=== PATIENT | female | born 1960 | race Caucasian/White ===

== ENCOUNTER 2016-06-02 13:51 | Outpatient (CLI) | payer MEDICAID | END 2016-06-02 13:52 | disposition home or self-care (01) | DX: Z12.31 Encounter for screening mammogram for malignant neoplasm of breast (principal) ==

== ENCOUNTER 2016-07-28 16:29 | Emergency (ER) | payer MEDICAID ==
[2016-07-28] MEDS ORDERED: LIDOCAINE 1%-EPI 1:100000 20 ML MDV ONE (16:59)
== END 2016-07-28 17:13 | disposition home or self-care (01) ==
DX: N76.4 Abscess of vulva (principal); N76.2 Acute vulvitis; I10 Essential (primary) hypertension; E11.9 Type 2 diabetes mellitus without complications; Z79.84 Long term (current) use of oral hypoglycemic drugs

== ENCOUNTER 2016-08-24 12:04 | Emergency (ER) | payer MEDICAID ==
[2016-08-24] MEDS ORDERED: BENZONATATE 100 MG CAPSULE PO STA (14:58)
[2016-08-24] MEDS ORDERED: guaiFENesin/DEXTROMETHORPHAN 10 ML UDC PO STA (14:59)
[2016-08-24] MEDS ORDERED: guaiFENesin/CODEINE 5 ML UDC ONE (15:08)
[2016-08-24] MEDS ORDERED: BENZONATATE 100 MG CAPSULE PO ONE (15:09)
[2016-08-24] MEDS ORDERED: guaiFENesin/DEXTROMETHORPHAN 10 ML UDC ONE (15:12)
== END 2016-08-24 15:23 | disposition home or self-care (01) ==
DX: J40 Bronchitis, not specified as acute or chronic (principal); I10 Essential (primary) hypertension
CPT/HCPCS: 36415; 71020; 80048; 84484; 85025; 99283; 99284; A9270

== ENCOUNTER 2019-07-31 15:55 | Outpatient (CLI) | payer MEDICAID | END 2019-07-31 15:56 | disposition home or self-care (01) | LOC: COV 15:55 | PROVIDERS: ATTEND Family Medicine | DX: R05 Cough (principal); R50.9 Fever, unspecified | CPT/HCPCS: 81599 ==

== ENCOUNTER 2019-08-19 10:24 | Emergency (ER) | payer MEDICAID ==
[2019-08-19] MEDS ORDERED: KETOROLAC 30 MG/ML VIAL IVP STA (11:32)
[2019-08-19] MEDS ORDERED: ACETAMINOPHEN 325 MG TABLET PO STA (11:32)
[2019-08-19] MEDS ORDERED: methocarbamoL 500 MG TABLET PO STA (11:33)
[2019-08-19 12:49] LABS: BASOPHILS % (AUTO) 0.5 %; EOSINOPHILS # (AUTO) 0.2 10^3/uL (0.0-0.7); EOSINOPHILS % (AUTO) 1.9 %; HGB - HEMOGLOBIN 13.5 g/dL (12.0-16.0); LYMPHOCYTES # (AUTO) 2.2 10^3/uL (1.5-3.5); LYMPHOCYTES % (AUTO) 25.6 %; MEAN CORPUSCULAR HEMOGLOBIN 27.4 pg (27.0-31.0); MEAN CORPUSCULAR HGB CONC 32.3 g/dL (32.0-36.0); MEAN CORPUSCULAR VOLUME 84.8 fL (81.0-99.0); MEAN PLATELET VOLUME 11.5 fL (7.9-10.8); MONOCYTES # (AUTO) 0.5 10^3/uL (0.0-1.0); NEUTROPHILS # (AUTO) 5.6 10^3/uL (1.5-6.6); NEUTROPHILS % (AUTO) 65.6 %; PLT - PLATELET COUNT 299 10^3/uL (130-450); RED BLOOD COUNT 4.93 10^6/uL (4.20-5.40); RED CELL DISTRIBUTION WIDTH 13.8 % (12.0-15.0); WHITE BLOOD COUNT 8.5 x10^3/uL (4.8-10.8)
--- NOTE | 2019-08-19 12:51 | XRAY Report ---
Reason: chest/back pain; COIVD + 3 weeks ago Procedure Date: 08/19/2019 Accession Number: [id number] / [id number] Procedure: XR - Chest 1 View X-Ray CPT Code: 56668 Final Report FULL RESULT: EXAM: CHEST RADIOGRAPHY EXAM DATE: 08/19/2019 12:12 PM. CLINICAL HISTORY: Chest/back pain; Covid +3 weeks ago. COMPARISON: CHEST 2 VIEW PA/LAT 08/24/2016 2:15 PM. TECHNIQUE: 1 view. FINDINGS: Lungs/Pleura: No focal opacities evident. No pleural effusion. No pneumothorax. Mediastinum: Within exam limitations, the cardiomediastinal contour is normal. Other: None. IMPRESSION: Normal single view chest. No active disease. RADIA
[2019-08-19 13:03] LABS: ALBUMIN 4.3 g/dL (3.2-5.5); ALBUMIN/GLOBULIN RATIO 1.2 (1.0-2.2); BILIRUBIN,TOTAL 0.4 mg/dL (0.2-1.0); CALCIUM 9.4 mg/dL (8.5-10.3); CREATININE 0.6 mg/dL (0.4-1.0); TOTAL PROTEIN 7.9 g/dL (6.7-8.2)
[2019-08-19] MEDS ORDERED: DEXAMETHASONE 10 MG/ML VIAL PO STA (13:26)
[2019-08-19] MEDS ORDERED: CHERRY SYRUP 10 ML UDC PO ONE (13:26)
--- NOTE | 2019-08-19 13:28 | ED Physician Documentation ---
PD HPI CHEST PAIN - Stated complaint Stated Complaint: C+ BACK PAIN - Chief complaint Chief Complaint: Resp - History obtained from History obtained from: Patient - History of Present Illness Timing - onset: How many days ago (2-3) Timing - duration: Days Timing - details: Gradual onset, Still present Quality: Aching, Sharp, Pain Location: Upper back (right scapular area) Improved by: Rest Worsened by: Inspiration, Movement Associated symptoms: Shortness of air. No: Nausea, Vomiting, Feeling faint / dizzy, Palpitations Similar symptoms before: Has not had sx before Review of Systems Constitutional: denies: Fever (not the past 2 weeks), Chills, Myalgias Nose: denies: Rhinorrhea / runny nose, Congestion Throat: denies: Sore throat Cardiac: denies: Palpitations Respiratory: reports: Cough (still with dry cough since the initial infection symptoms.). 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 - Present Medications Home Medications: Ambulatory Orders Medication Instructions Recorded Confirmed Metformin HCl 1,000 mg PO BID 11/17/13 08/24/16 Glipizide 5 mg PO DAILY 08/24/16 08/24/16 Hydrocodone/Acetaminophen [[place] 1 each PO Q6H PRN #15 tablet 08/19/19 5-325 Tablet] Naproxen 500 mg PO BID #20 tablet 08/19/19 Tizanidine HCl 4 mg PO TID PRN #20 capsule 08/19/19 - Allergies Allergies/Adverse Reactions: Allergies Allergy/AdvReac Type Severity Reaction Status Date / Time No Known Drug Allergies Allergy Verified 08/19/19 10:54 - Social History Does the pt smoke?: No Smoking Status: Never smoker Does the pt drink ETOH?: No Does the pt have substance abuse?: No - Immunizations Immunizations are current?: Yes PD ED PE NORMAL - Vitals Vital signs reviewed: Yes - General General: Alert and oriented X 3, No acute distress, Well developed/nourished - HEENT HEENT: Moist mucous membranes, Pharynx benign - Neck Neck: Supple, no meningeal sign, No adenopathy - Cardiac Cardiac: RRR, No murmur - Respiratory Respiratory: Clear bilaterally - Abdomen Abdomen: Soft, Non tender - Back Back: No CVA TTP, No spinal TTP, Other (the thoracic back is tender in the right infrascapular muscles. No rash nor redness. ) - Derm Derm: Normal color, Warm and dry - Extremities Extremities: No deformity, No tenderness to palpate, Normal ROM s pain, No edema, No calf tenderness / cord - Neuro Neuro: Alert and oriented X 3, No motor deficit, Normal speech Results - Vitals Vitals: Vital Signs - 24 hr 08/19/19 08/19/19 08/19/19 10:50 10:54 12:54 Temperature 36.1 C L Heart Rate 105 H 99 97 Respiratory 18 16 16 Rate Blood Pressure 144/93 H 140/92 H 137/75 H O2 Saturation 97 98 99 08/19/19 13:49 Temperature 36.4 C L Heart Rate 84 Respiratory 16 Rate Blood Pressure 132/64 H O2 Saturation 100 Oxygen O2 Source Room air - EKG (time done) 11:48 Rate: Rate (enter#) (95) Rhythm: NSR [place]: Normal Intervals: Normal ID QRS: Normal Ischemia: Normal ST segments. No: ST elevation c/w ischemia, ST depression - Labs Labs: Laboratory Tests 08/19/19 08/19/19 08/19/19 11:50 11:50 11:50 WBC 8.5 RBC 4.93 Hgb 13.5 Hct 41.8 MCV 84.8 MCH 27.4 MCHC 32.3 RDW 13.8 Plt Count 299 MPV 11.5 H Neut # (Auto) 5.6 Lymph # (Auto) 2.2 [place] # (Auto) 0.5 Eos # (Auto) 0.2 Baso # (Auto) 0.0 Absolute Nucleated RBC 0.00 Nucleated RBC % 0.0 Sodium 135 Potassium 4.1 Chloride 101 Carbon Dioxide 22 Anion Gap 12.0 BUN 12 Creatinine 0.6 Estimated GFR (MDRD) 103 Glucose 296 H Calcium 9.4 Total Bilirubin 0.4 AST 30 ALT 37 Alkaline Phosphatase 68 Troponin I High Sens 3.6 B-Natriuretic Peptide Total Protein 7.9 Albumin 4.3 Globulin 3.6 Albumin/Globulin Ratio 1.2 Lipase 31 08/19/19 11:50 WBC RBC Hgb Hct MCV MCH MCHC RDW Plt Count MPV Neut # (Auto) Lymph # (Auto) [place] # (Auto) Eos # (Auto) Baso # (Auto) Absolute Nucleated RBC Nucleated RBC % Sodium Potassium Chloride Carbon Dioxide Anion Gap BUN Creatinine Estimated GFR (MDRD) Glucose Calcium Total Bilirubin AST ALT Alkaline Phosphatase Troponin I High Sens B-Natriuretic Peptide 14 Total Protein Albumin Globulin Albumin/Globulin Ratio Lipase - Rads (name of study) chest xray Radiology: Prelim report reviewed, See rad report (normal single view xray; no active disease) PD MEDICAL DECISION MAKING - ED course Complexity details: considered differential (She had symptoms with cough and fever back in July 25 or and subsequently had a Coban test that was positive that resulted on the . At that point she was actually starting to feel improved. She has had some mild persistent cough but no fevers. At this point I think she would be low risk of being viral shedding from the coded and more concerning for secondary infection such as bronchitis or pneumonia or potentially just musculoskeletal pain. She has low clinical suspicion for PE based on Wells criteria.), d/w patient Departure - Departure Disposition: 01 Home, Self Care Clinical Impression: Strain of thoracic back region Condition: Stable Record reviewed to determine appropriate education?: Yes Instructions: ED Sprain Thoracic Spine Follow-Up: Nick Tom, [Primary Care Provider] - Prescriptions: Hydrocodone/Acetaminophen [[place] 5-325 Tablet] 1 each PO Q6H PRN #15 tablet PRN Reason: Pain Naproxen 500 mg PO BID #20 tablet Tizanidine HCl 4 mg PO TID PRN #20 capsule PRN Reason: Spasms Comments: No signs of pneumonia nor fluid around the lung nor heart inflammation based on your test today. I presume some muscular skeletal strain related to being ill and coughing. We can treat this with some anti-inflammatories of naproxen and dexamethasone over the next 5 days or so. To do this add tizanidine muscle relaxant for spasms and stiffness. To this add Tylenol or hydrocodone every 6 hours as needed for worse pain. I would anticipate improvement over the next several days and resolution in a week or so. Recheck if not improved during that timeframe and return if worsening symptoms or other symptoms such as fever worsening cough coughing sputum or blood or other concerns. Discharge Date/Time: 08/19/19 13:50
[2019-08-19 13:50] VITALS: BP 132/64
== END 2019-08-19 13:50 | disposition home or self-care (01) ==
LOC: ED 10:24
DX: S29.012A Strain of muscle and tendon of back wall of thorax, initial encounter (principal); X58.XXXA Exposure to other specified factors, initial encounter; I10 Essential (primary) hypertension; E11.9 Type 2 diabetes mellitus without complications; Z79.84 Long term (current) use of oral hypoglycemic drugs
CPT/HCPCS: 36415; 71045; 80053; 83690; 83880; 84484; 85025; 93005; 96374; 99284; A9270

== ENCOUNTER 2019-11-30 10:50 | Outpatient (CLI) | payer MEDICAID | END 2019-11-30 23:59 | disposition home or self-care (01) | LOC: COV 10:50 | PROVIDERS: ATTEND Family Medicine | DX: R05 Cough (principal); M79.10 Myalgia, unspecified site; R53.83 Other fatigue; J02.9 Acute pharyngitis, unspecified; Z20.828 Contact with and (suspected) exposure to other viral communicable diseases ==

== ENCOUNTER 2020-10-28 15:10 | Outpatient (CLI) | payer MEDICAID | END 2020-10-28 23:59 | disposition home or self-care (01) | LOC: COV 15:10 | PROVIDERS: ATTEND Family Medicine | DX: R06.02 Shortness of breath (principal); M79.10 Myalgia, unspecified site; R53.83 Other fatigue; R07.0 Pain in throat; R19.7 Diarrhea, unspecified; R09.81 Nasal congestion; J34.89 Other specified disorders of nose and nasal sinuses; Z20.822 Contact with and (suspected) exposure to COVID-19 ==

== ENCOUNTER 2020-12-04 11:56 | Emergency (ER) | payer MEDICAID ==
--- NOTE | 2020-12-04 13:01 | ED Physician Documentation ---
History of Present Illness - Stated complaint Stated Complaint: BACK PX - Chief complaint Chief Complaint: Back Pain - Additonal information Additional information: 60-year-old female presents the emergency department for evaluation of left- sided thoracic back pain. She reports that last time she had symptoms was August 2019. She improved after a short course of muscle relaxer, hydrocodone and a steroid. She does report being type II diabetic with sugars ranging from the 70s to the 200s. Over the last few weeks she has been having to lift her 80 pound dog's due to their aging and poor health which she thinks incited this event. She denies any falls or trauma. No fevers. Denies chest pain or difficulty breathing. No paresthesias or difficulty walking. She has been using a TENS unit and icy hot with some relief. She did take 400 mg of Motrin yesterday which markedly improved the pain for short period of time. Review of Systems Constitutional: reports: Reviewed and negative Eyes: reports: Reviewed and negative Nose: reports: Reviewed and negative Throat: reports: Reviewed and negative Cardiac: reports: Reviewed and negative Respiratory: denies: Dyspnea, Cough GI: denies: Abdominal Pain, Abdominal Swelling, Nausea : reports: Reviewed and negative Musculoskeletal: reports: Back pain Neurologic: denies: Generalized weakness, Focal weakness, Numbness, Difficulty speaking, Headache, Head injury PD PAST MEDICAL HISTORY - Past Medical History Past Medical History: Yes Cardiovascular: Hypertension Respiratory: None Neuro: None Endocrine/Autoimmune: Type 2 diabetes Psych: Depression, Post traumatic stress disorder - Past Surgical History 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 - Present Medications Home Medications: Ambulatory Orders Medication Instructions Recorded Confirmed Metformin HCl 2,000 mg PO BID 11/17/13 12/04/20 glipiZIDE [Glipizide] 5 mg PO DAILY 08/24/16 12/04/20 Naproxen 500 mg PO BID #20 tablet 08/19/19 12/04/20 Tizanidine HCl 4 mg PO TID PRN #20 capsule 08/19/19 Ibuprofen [Motrin] 600 mg PO TID #20 tab 12/04/20 tiZANidine [Zanaflex] 4 mg PO BID #15 tablet 12/04/20 - Allergies Allergies/Adverse Reactions: Allergies Allergy/AdvReac Type Severity Reaction Status Date / Time No Known Drug Allergies Allergy Verified 12/04/20 12:11 - Social History Does the pt smoke?: Yes Smoking Status: Current every day smoker Does the pt drink ETOH?: No Does the pt have substance abuse?: Yes Substance Use and Type: Marijuana - Immunizations Immunizations are current?: Yes PD ED PE EXPANDED - General General: Alert, No acute distress, Well developed/nourished - HEENT HEENT: Atraumatic - Cardiac Cardiac: Regular Rate, Radial strong equal, Pedal strong equal, Cap refill < 2 sec - Respiratory Respiratory: Clear to ausultation dian. No: Distress, Labored - Abdomen Abdomen: Normal Bowel sounds. No: Tender to palpation - Back Back: Soft tissue tenderness (Left-sided thoracic muscle tenderness reproducible with movement and deeper palpation. no spasm). No: Vertebral tenderness, Limited ROM (left sided throacic paraspinous tenderness. FUll ROM of thoracic and lumbar spine. No rash. ), CVA TTP right, CVA TTP left Results - Vitals Vitals: Vital Signs - 24 hr 12/04/20 12:07 Temperature 36.6 C Heart Rate 98 Respiratory 16 Rate Blood Pressure 169/79 H O2 Saturation 98 Oxygen O2 Source Room air PD MEDICAL DECISION MAKING - ED course Complexity details: reviewed results ED course: 60 year old female here with 2 days of acute left thoracic back pain. no trauma though she has been lifting her dogs recently due to their poor health. No red flags on exam or hx other than age. Reassuring exam and she has had relief with motrin and a tens unit. will rx muscle relaxer and limited motrin. Defer steroids given hx of dm. recommend moderate weight loss and physical therapy. Emergent and worrisome return precautions discussed Departure - Departure Disposition: 01 Home, Self Care Clinical Impression: Acute thoracic back pain Qualifiers: Back pain laterality: left Qualified Code(s): M54.6 - Pain in thoracic spine Condition: Stable Record reviewed to determine appropriate education?: Yes Prescriptions: Ibuprofen [Motrin] 600 mg PO TID #20 tab tiZANidine [Zanaflex] 4 mg PO BID #15 tablet Comments: Lina let's have you fill the prescription for the muscle relaxer and the ibuprofen. I do think that you would benefit from moderate weight loss as well as physical therapy to help strengthen your core muscles. It is okay to continue to use your TENS unit at home as well as gentle stretching. With these medications I would expect your back pain to be getting better over the next 48 to 72 hours. If worsening, you develop fevers or have chest pain, have difficulty voiding or have weakness in your legs please return to the ER for a second evaluation.
[2020-12-04 13:04] VITALS: BP 149/88
== END 2020-12-04 13:07 | disposition home or self-care (01) ==
LOC: ED 11:56
DX: M54.6 Pain in thoracic spine (principal); E11.9 Type 2 diabetes mellitus without complications; Z79.84 Long term (current) use of oral hypoglycemic drugs; I10 Essential (primary) hypertension; F17.200 Nicotine dependence, unspecified, uncomplicated
CPT/HCPCS: 99282; 99284

== ENCOUNTER 2020-12-08 07:42 | Emergency (ER) | payer MEDICAID ==
[2020-12-08 07:57] VITALS: BP 168/91
--- NOTE | 2020-12-08 08:06 | ED Physician Documentation ---
History of Present Illness - Stated complaint Stated Complaint: BACK SPASM - Chief complaint Chief Complaint: Back Pain - History obtained from History obtained from: Patient - History of Present Illness Timing: How many days ago (5) Pain level max: 7 Pain level now: 5 - Additonal information Additional information: Patient with left upper back pain x 4 days. noted a rash last night. No fevers. No chills. No injury. Has been lifting her dogs recently. She has been being treated with tizanidine and Motrin. Symptoms are not improving. On the rash is described as painful. Located on the left side of the spine, going around to the left breast. 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 - Present Medications Home Medications: Ambulatory Orders Medication Instructions Recorded Confirmed Metformin HCl 2,000 mg PO BID 11/17/13 12/04/20 glipiZIDE [Glipizide] 5 mg PO DAILY 08/24/16 12/04/20 Naproxen 500 mg PO BID #20 tablet 08/19/19 12/04/20 Tizanidine HCl 4 mg PO TID PRN #20 capsule 08/19/19 Ibuprofen [Motrin] 600 mg PO TID #20 tab 12/04/20 tiZANidine [Zanaflex] 4 mg PO BID #15 tablet 12/04/20 HYDROcod/ACETAM 5/325 [[place] 5/325] 1 - 2 ea PO Q6H PRN #14 tablet 12/08/20 Valacyclovir HCl [Valtrex] 1,000 mg PO TID #21 tablet 12/08/20 - Allergies Allergies/Adverse Reactions: Allergies Allergy/AdvReac Type Severity Reaction Status Date / Time No Known Drug Allergies Allergy Verified 12/08/20 07:57 - Social History Does the pt smoke?: Yes Smoking Status: Current every day smoker Does the pt drink ETOH?: No Does the pt have substance abuse?: Yes - Immunizations Immunizations are current?: Yes PD ED PE NORMAL - Vitals Vital signs reviewed: Yes - General General: Alert and oriented X 3, No acute distress - HEENT HEENT: Moist mucous membranes - Neck Neck: Supple, no meningeal sign - Cardiac Cardiac: RRR - Respiratory Respiratory: No respiratory distress, Clear bilaterally - Back Back: No spinal TTP - Derm Derm: Warm and dry, Other (Vesicular rash that starts at the mid left thoracic spine, around T6, radiates around to the left side of the chest.) - Neuro Neuro: Alert and oriented X 3 - Psych Psych: Normal mood, Normal affect Results - Vitals Vitals: Vital Signs - 24 hr 12/08/20 07:45 Temperature 35.9 C L Heart Rate 79 Respiratory 16 Rate Blood Pressure 168/91 H O2 Saturation 100 Oxygen O2 Source Room air PD MEDICAL DECISION MAKING - ED course Complexity details: reviewed old records, considered differential, d/w patient ED course: Patient with what appears to be shingles. Will start on valacyclovir for this. We will also place on pain medication for home. We will have her stop the tizanidine. I am prescribing a short course of short-acting opioid pain medication for this patient. 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 I have discussed that the opioids are for short term therapy only, and will not be refilled from the ED. patient counseled regarding signs and symptoms for which I believe and urgent re-evaluation would be necessary. Patient with good understanding of and agreement to plan and is comfortable going home at this time This document was made in part using voice recognition software. While efforts are made to proofread this document, sound alike and grammatical errors may occur. Departure - Departure Disposition: 01 Home, Self Care Clinical Impression: Shingles Qualifiers: Herpes zoster complications: without complications Qualified Code(s): B02.9 - Zoster without complications Condition: Good Instructions: ED Shingles Follow-Up: your,doctor in 1 week [Other] Prescriptions: HYDROcod/ACETAM 5/325 [[place] 5/325] 1 - 2 ea PO Q6H PRN #14 tablet PRN Reason: Pain Valacyclovir HCl [Valtrex] 1,000 mg PO TID #21 tablet Comments: Do not take the tizanidine with the valacyclovir. Use the medications as prescribed. Return if you worsen. I am prescribing a short course of narcotic pain medication for you. These are potentially dangerous and addictive medications that should be used carefully. These medications may constipate you. Take an [id number] stool softener (docusate) twice daily with plenty of water while taking these medications. If you go 24 hours without a bowel movement, take [id number] miralax, per package instructions. Do not drink or drive while taking these medications. If you received narcotic or sedating medications while in the emergency department, do not drive for 24 hours. Store this medication in a safe, secure place and out of reach of children. It is a violation of federal law to give or sell this medication to another person or to use in a manner other than prescribed. The ED will not refill narcotic prescriptions, including prescriptions lost or stolen. To dispose of unwanted medications: 1. [facility] at [address] in [place] has a medication drop box. They accept prescription medications (in pill form) Wednesday through Wednesday 9:00 a.m. to 5:00 p.m. 2. The [facility] [employer] accepts prescription medications (in pill form only) for disposal year round. Call for more information. 3. Contact the [facility] for the next [facility] sponsored prescription drug collection event. , [phone], or [phone];
== END 2020-12-08 08:27 | disposition home or self-care (01) ==
LOC: ED 07:42
DX: B02.9 Zoster without complications (principal); I10 Essential (primary) hypertension; E11.9 Type 2 diabetes mellitus without complications; Z79.84 Long term (current) use of oral hypoglycemic drugs; F17.200 Nicotine dependence, unspecified, uncomplicated
CPT/HCPCS: 99281; 99284

== ENCOUNTER 2021-03-24 04:45 | Outpatient (CLI) | payer MEDICAID | END 2021-03-24 23:59 | disposition home or self-care (01) | LOC: LAB.R 04:45 | DX: A04.72 Enterocolitis due to Clostridium difficile, not specified as recurrent (principal) | CPT/HCPCS: 87493 ==

== ENCOUNTER 2021-04-22 08:18 | Outpatient (CLI) | payer MEDICAID ==
[2021-04-22 12:28] LABS: THYROID STIMULATING HORMONE 2.52 uIU/mL (0.34-5.60)
[2021-04-22 12:29] LABS: FREE T3 3.91 pg/mL (2.5-3.9)
[2021-04-22 12:30] LABS: FREE T4 (FREE THYROXINE) 0.93 ng/dL (0.58-1.64)
[2021-04-22 12:35] LABS: FERRITIN 23.9 ng/mL (11.0-306.8)
== END 2021-04-22 08:19 | disposition home or self-care (01) ==
LOC: LAB.N 08:18
PROVIDERS: ATTEND Family Medicine
DX: A04.71 Enterocolitis due to Clostridium difficile, recurrent (principal); K30 Functional dyspepsia; E10.9 Type 1 diabetes mellitus without complications; G47.9 Sleep disorder, unspecified; F41.1 Generalized anxiety disorder
CPT/HCPCS: 36415; 82533; 82728; 84439; 84443; 84481; 86376; 86800

== ENCOUNTER 2021-11-14 14:51 | Outpatient (CLI) | payer MEDICAID ==
--- NOTE | 2021-11-14 15:24 | XRAY Report ---
PROCEDURE: Chest 2 View X-Ray INDICATIONS: SHORTNESS OF BREATH TECHNIQUE: 2 view(s) of the chest. COMPARISON: 08/19/2019 FINDINGS: Surgical changes and devices: None. Lungs and pleura: No pleural effusions or pneumothorax. Lungs are clear. Mediastinum: Mediastinal contours are normal. Heart size is normal. Bones and chest wall: No suspicious bony abnormalities. Soft tissues appear unremarkable. IMPRESSION: No acute cardiopulmonary process demonstrated radiographically. Reviewed by: Shilo Silva MD on 11/14/2021 3:23 PM PDT Approved by: Shilo Silva MD on 11/14/2021 3:23 PM PDT Station ID: [id number]
[2021-11-14 15:33] LABS: ALBUMIN 3.9 g/dL (3.2-5.5); ALBUMIN/GLOBULIN RATIO 1.1 (1.0-2.2); ALKALINE PHOSPHATASE 84 IU/L (42-121); ALT ALANINE AMINOTRANSFERASE 64 IU/L (10-60); AST ASPARTATE AMINOTRANSFERASE 50 IU/L (10-42); BILIRUBIN,TOTAL < 0.2 mg/dL (0.2-1.0); BUN - BLOOD UREA NITROGEN 20 mg/dL (6-20); CALCIUM 9.6 mg/dL (8.5-10.3); CARBON DIOXIDE - CO2 25 mmol/L (21-32); CHLORIDE 100 mmol/L (101-111); CHOL/HDL RATIO 3.4 (<4.4); CHOLESTEROL 185 mg/dL; CREATININE 0.8 mg/dL (0.4-1.0); GFR - MDRD 73 (>89); GLUCOSE 321 mg/dL (70-100); HDL CHOLESTEROL 54 mg/dL; LDL CHOLESTEROL,CALCULATED 118 mg/dL; LDL/HDL RATIO 2.2 (<4.4); POTASSIUM 4.2 mmol/L (3.5-5.0); SODIUM 136 mmol/L (135-145); TOTAL PROTEIN 7.4 g/dL (6.7-8.2); TRIGLYCERIDES 65 mg/dL; VLDL CHOLESTEROL 13 mg/dL
[2021-11-14 18:58] LABS: ESTIMATED AVERAGE GLUCOSE 223 mg/dL (70-100); HEMOGLOBIN A1c% 9.4 % (4.27-6.07)
== END 2021-11-14 14:52 | disposition home or self-care (01) ==
LOC: DI 14:51
PROVIDERS: ATTEND Family Medicine
DX: R06.02 Shortness of breath (principal); I10 Essential (primary) hypertension; E11.9 Type 2 diabetes mellitus without complications; E78.49 Other hyperlipidemia
CPT/HCPCS: 36415; 80053; 80061; 82043; 83036; 83721

== ENCOUNTER 2022-03-09 15:22 | Outpatient (CLI) | payer MEDICAID ==
[2022-03-09 16:24] VITALS: BP 128/76
--- NOTE | 2022-03-09 16:24 | SLEEP CARE CONSULTATION ---
Information from patient questionnaire entered by Daryl No. I have reviewed and concur with the information entered by Daryl No. This document represents the service I personally performed and the decisions made by me, Jean Sawyer MD, [facility]. History of Present Illness Service Date and Time: 03/09/2022 1522 Reason for Visit: New patient Chief Complaint: reports: Unrefreshed sleep, Snoring, Excessive daytime sleepiness, Frequent awakenings at night Snores at night: Yes Observed to quit breathing while asleep: No Sleeps alone due to snoring: No Reasons for waking at night: reports: Choking, Gasping for air, Bathroom, Other (noise) Toss, Turn, or Twitch while sleeping: Yes Recalls having dreams: Yes Feels refreshed in the morning: No Morning headache: No Sleepy or fatigued during the day: Yes Ever fallen asleep while driving: No Takes day naps: Yes Dreams during day naps: No Prior sleep studies: No Additional HPI information: I have the pleasure of seeing Ms. Sheikh today regarding the possibility of her having obstructive sleep apnea. As you know, she is a 62 year old lady who complains of insomnia, frequent awakenings, loud snore, unrefreshed sleep, and excessive daytime sleepiness. The patient tells me that she normally goes to bed around 10:30 pm, and it takes her approximately 1 2 hours to fall asleep. She has been told that she snores loudly and irregularly at night. She has never been observed to stop breathing in her sleep. However, she sleeps alone. She can recall waking up on the average of 2 - 3 times during the night. Most of the time she wakes up because of having to use the bathroom. She has awakened occasionally because of her own snoring, choking, and having to gasp for air. There is a lot of tossing and turning in her sleep. No somniloquy (sleep talking) or somnambulism (sleep walking). Generally, there is no recollection of dreams. In the morning she usually gets up out of the bed around 9:30 a.m. not feeling refreshed nor rested. She usually does not have a morning headache. During the day she complains of feeling sleepy and fatigued. Her score on [place] Sleepiness Scale is 16 out of 24. She never has fallen asleep while driving nor has had any accident due to sleepiness. She usually takes naps during the day. She reports having impaired concentration during the day. 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 Patient is and lives in . Have you smoked in the past 12 months: Yes Cigarettes per day (20/pack): 1 (.5 packs daily ) Alcohol use: No Caffeine use: No Family History Family Hx Sleep Apnea: Mother: Sleep apnea - Treated, Father: Snoring, Sleep apnea - Treated, Grandparent: Sleep apnea - Treated Allergies and Home Medications Known drug allergies: No Drug allergies reviewed: Yes Home medication list reviewed: Yes Allergy and home medication list: Allergies No Known Drug Allergies Allergy (Verified 12/08/20 07:57) Review of Systems Cardiovascular: reports: high blood pressure, chest pain, irregular heart rate or pulse Respiratory: reports: shortness of breath Gastrointestinal: reports: heartburn, difficulty swallowing Urinary: denies: incontinence, frequency, urgency, impotence, other Neurological: denies: headaches, seizure, head trauma, disorientation, speech dysfunction, gait or balance problems, fainting or unconsciousness, other Psychiatric: reports: anxiety, depression, mood disorder, other (PTSD) Ear/Nose/Throat: denies: nasal congestion, sinus problems, nose bleeds, dry mouth/throat, hoarseness, injury to nose, tonsillectomy, wisdom teeth removed, other Endocrine: denies: thyroid disease, history of goiter, sluggishness, too hot or cold, excessive thirst, increased appetite, increased urination, unexplained weakness, other Musculoskeletal: denies: joint pain, neck pain, back pain, joint swelling, muscle pain or cramping, mobility problems, other Immunologic: denies: sneezing, rash, itching, allergies to food or environment, other Physical Exam Vital signs obtained and entered by: DARYL Hanson MA Blood Pressure: 128/76 (left arm) Cuff size: regular Heart Rate: 105 O2 Saturation: 99 Height: 5 ft 11 in Weight: 226 lb Body Mass Index: 31.5 BMI Classification: Obese Neck circumference: 14.25 HEENT: No craniofacial malformation Nostrils: patent to airflow Turbinates: normal Septum: midline Mouth and throat: narrow oropharynx Soft palate: long Hard palate: normal Uvula: normal Uvula visualization: 50% Mallampati Class II Tongue: enlarged in size with teeth temple on lateral edges Tonsils: absent bilaterally Chin and jaw: normal size and position Neck: normal w/o lymphadenopathy or thyromegaly Heart: regular rate and rhythm Lungs: clear bilaterally Extremities: no edema or clubbing Neurologic: intact Impression and Plan IMPRESSION: 1. Obstructive Sleep Apnea-Hypopnea Syndrome, as evident by history of loud and irregular snoring, frequent awakenings during the night, unrefreshed sleep, cognitive impairment, and daytime hypersomnolence. Narrow oropharynx and obesity are common predisposing factors for obstructive sleep apnea-hypopnea syndrome. I recommend proceeding to polysomnography to confirm the diagnosis and to assess severity. If she has significant sleep disordered breathing, a manual CPAP titration study will also be performed to find the optimal treatment pressure. I informed the patient of what the sleep studies involve and after some discussion, she agreed to proceed. Plan: 1. Schedule polysomnography and return in 1 to 2 weeks after the study to discuss result and initiate therapy. 2. Avoid long distance driving or when feeling sleepy. 3. Avoid alcohol, sedative and muscle relaxant around bedtime. 4. Attempt to lose weight. Follow up with Sleep Care in: 1-2 months Visit Type: In Office Time Spent with Patient (minutes): 15 Provider Statement: I spent 100% of the Face to Face Visit with the patient with greater than 50% spent counseling the patient and coordination of care.
== END 2022-03-09 15:23 | disposition home or self-care (01) ==
LOC: SC 15:22
PROVIDERS: ATTEND Internal Medicine Pulmonary Disease
DX: G47.10 Hypersomnia, unspecified (principal); R41.89 Other symptoms and signs involving cognitive functions and awareness; G47.8 Other sleep disorders; R06.83 Snoring; E66.9 Obesity, unspecified; Z68.31 Body mass index [BMI] 31.0-31.9, adult
CPT/HCPCS: 99203; 99212

== ENCOUNTER 2022-04-21 14:26 | Outpatient (CLI) | payer MEDICAID | END 2022-04-21 14:27 | disposition home or self-care (01) | LOC: SC 14:26 | PROVIDERS: ATTEND Internal Medicine Pulmonary Disease | DX: G47.33 Obstructive sleep apnea (adult) (pediatric) (principal); R09.02 Hypoxemia; E66.9 Obesity, unspecified; Z68.31 Body mass index [BMI] 31.0-31.9, adult | CPT/HCPCS: 95806 ==

== ENCOUNTER 2022-05-08 15:13 | Outpatient (CLI) | payer MEDICAID ==
--- NOTE | 2022-05-08 14:20 | SLEEP CARE CONSULTATION ---
Information from patient questionnaire entered by Ines Torre MA. I have reviewed and concur with the information entered by Ines Torre MA. This document represents the service I personally performed and the decisions made by , Lizz Cameron ARNP. History of Present Illness Service Date and Time: 05/08/2022 1400 Initial [place] Sleepiness Scale score: 16 (03/09/2022) Current [place] Sleepiness Scale score: 10 Additional HPI information: MOON MCNEAL returns via video telehealth visit for follow up and results of the recently performed home sleep study. I explained the pathophysiology behind obstructive sleep apnea. We then spent quite a bit of time discussing different treatment options. For mild obstructive sleep apnea, surgery and oral appliance are alternatives to nasal CPAP therapy but in moderate or severe cases, nasal CPAP is the most effective and reliable treatment. Because apnea is primarily in supine position, then positional management therapy could be effective. Methods discussed such as positioning with pillows to prevent supine sleep. I reviewed the impact of weight changes on sleep apnea and strongly recommended losing weight. After some discussion, the patient opted to go with the nasal CPAP therapy. Nasal autoCPAP set at 4-15 cmH20 will be ordered with rationale explained. A manual titration study will be ordered if unable to find optimal pressure with office adjustments. I explained how CPAP machine works and what to expect when using the machine. Using CPAP every night in order to get used to it was emphasized. Patient advised to put CPAP mask on before getting into bed so as not to fall asleep without CPAP. To assist acclimation to CPAP use, it could also be used for a short time during day while reading or watching TV. The patient was instructed to call the CPAP supplier to discuss any mechanical problem that may occur. If the mask given is uncomfortable or is difficult to keep on through the night even with adjustment, contact the CPAP supplier as many will replace with another mask style if notified before 30 days. If snoring or perceives is not getting enough air or too much air from the machine, notify this office. Patient was cautioned about risks of drowsy driving until sleepiness symptoms resolve. Sleep Study - Results Prior sleep studies: No Polysomnography/Home Sleep Study results: Physician Impression: The quality of the study is good. The length of the study is adequate (> 240 minutes). Please also see the tabulated and graphic data. 1. Obstructive Sleep Apnea-Hypopnea (ICD-10 G47.33), moderate, with an AHI of 17.9/hr and lauren SaO2 of 84%. During the study, the patient had 82 apneas (81 obstructive, 1 central, 0 mixed) and 94 hypopneas. The longest episode lasted 89.0 seconds. The respiratory events occurred almost exclusively during supine sleep (supine AHI was 23.1 and non-supine, 4.94). 2. Hypoxemia (ICD-10 R09.02), mild, with the lowest oxygen saturation of 84 % and 2.8 minutes with SaO2 under 90%. Baseline oxygen saturation was normal (Average oxygen saturation was 95%). Allergies and Home Medications Drug allergies reviewed: Yes (NKDA) Home medication list reviewed: Yes (lisinopril 5 mg) Review of Systems Review of systems same as previous: Yes (no changes) Physical Exam Vital signs obtained and entered by: INES ZELAYA, VIA PHONE Height: 5 ft 11 in Weight: 217 lb Body Mass Index: 30.2 BMI Classification: Obese Impression and Plan 1. Obstructive Sleep Apnea-Hypopnea Syndrome, moderate, with lowest oxygen saturation of 84%. Obviously this is the cause of the patients symptoms of unrefreshed sleep, and excessive daytime sleepiness. Positive pressure therapy could benefit hypertension, diabetes, depression, mood disorder and gastric reflux. As mentioned above, the patient will be started on nasal autoCPAP therapy with pressure set at 4-15 cmH2O. Compliance guidelines also reviewed. A copy of compliance guidelines will be given for reference at check out. Because the apnea is more severe supine, I instructed to avoid sleeping supine using pillow positioning until able to start CPAP use. * Nasal auto CPAP therapy, pressure at 4-15 cm H2O. * Attempt to lose weight. * Avoid alcohol consumption near bedtime. * Avoid supine sleep until using CPAP. * The patient is again cautioned about driving until sleepiness completely resolves. * Return one month after CPAP obtained. I will assess response to therapy and compliance at that time. Counseling Topics: Weight loss health impact Visit Type: Telehealth Video Video Type: Doximity Patient Location: Home Location of Provider: Office Patient agrees and consents to this telehealth visit type: Yes Patient agrees to have their insurance billed: Yes Time Spent with Patient (minutes): 25 Provider Statement: I spent 100% of the Telehealth Video Call with the patient with greater than 50% spent counseling the patient and coordination of care.
== END 2022-05-08 15:14 | disposition home or self-care (01) ==
LOC: SC 15:13
PROVIDERS: ATTEND Nurse Practitioner Family
DX: G47.33 Obstructive sleep apnea (adult) (pediatric) (principal); E66.9 Obesity, unspecified; Z68.30 Body mass index [BMI] 30.0-30.9, adult

== ENCOUNTER 2022-07-08 13:38 | Outpatient (CLI) | payer MEDICAID ==
[2022-07-08 13:48] LABS: BASOPHILS % (AUTO) 0.3 %; EOSINOPHILS # (AUTO) 0.1 10^3/uL (0.0-0.7); EOSINOPHILS % (AUTO) 0.8 %; HGB - HEMOGLOBIN 13.2 g/dL (12.0-16.0); LYMPHOCYTES # (AUTO) 2.6 10^3/uL (1.5-3.5); LYMPHOCYTES % (AUTO) 21.1 %; MEAN CORPUSCULAR HEMOGLOBIN 27.6 pg (27.0-31.0); MEAN CORPUSCULAR HGB CONC 32.2 g/dL (32.0-36.0); MEAN CORPUSCULAR VOLUME 85.6 fL (81.0-99.0); MEAN PLATELET VOLUME 10.3 fL (7.9-10.8); MONOCYTES # (AUTO) 0.8 10^3/uL (0.0-1.0); MONOCYTES % (AUTO) 6.2 %; NEUTROPHILS # (AUTO) 8.8 10^3/uL (1.5-6.6); NEUTROPHILS % (AUTO) 71.3 %; PLT - PLATELET COUNT 299 10^3/uL (130-450); RED BLOOD COUNT 4.79 10^6/uL (4.20-5.40); RED CELL DISTRIBUTION WIDTH 13.1 % (12.0-15.0); WHITE BLOOD COUNT 12.3 x10^3/uL (4.8-10.8)
[2022-07-08 14:10] LABS: ALBUMIN 3.6 g/dL (3.2-5.5); ALKALINE PHOSPHATASE 62 IU/L (42-121); ALT ALANINE AMINOTRANSFERASE 30 IU/L (10-60); AST ASPARTATE AMINOTRANSFERASE 25 IU/L (10-42); BILIRUBIN,TOTAL 0.9 mg/dL (0.2-1.0); BUN - BLOOD UREA NITROGEN 11 mg/dL (6-20); CALCIUM 9.3 mg/dL (8.5-10.3); CARBON DIOXIDE - CO2 27 mmol/L (21-32); CHLORIDE 97 mmol/L (101-111); CHOL/HDL RATIO 4.5 (<4.4); CHOLESTEROL 190 mg/dL; CREATININE 0.7 mg/dL (0.4-1.0); GFR - MDRD 85 (>89); GLUCOSE 326 mg/dL (70-100); HDL CHOLESTEROL 42 mg/dL; LDL CHOLESTEROL,CALCULATED 128 mg/dL; POTASSIUM 4.3 mmol/L (3.5-5.0); SODIUM 134 mmol/L (135-145); TOTAL PROTEIN 7.2 g/dL (6.7-8.2); TRIGLYCERIDES 102 mg/dL; VLDL CHOLESTEROL 20 mg/dL
[2022-07-08 20:30] LABS: ESTIMATED AVERAGE GLUCOSE 312 mg/dL (70-100); HEMOGLOBIN A1c% 12.5 % (4.27-6.07)
== END 2022-07-08 13:39 | disposition home or self-care (01) ==
LOC: LAB 13:38
PROVIDERS: ATTEND Family Medicine
DX: E11.9 Type 2 diabetes mellitus without complications (principal)
CPT/HCPCS: 36415; 80053; 80061; 82043; 82570; 83036; 83721; 85025

== ENCOUNTER 2022-08-26 12:54 | Outpatient (CLI) | payer MEDICAID ==
--- NOTE | 2022-08-26 13:25 | SLEEP CARE CONSULTATION ---
Information from patient questionnaire entered by Fariha No. I have reviewed and concur with the information entered by Fariha No. This document represents the service I personally performed and the decisions made by me, Lizz Cameron ARNP. History of Present Illness Service Date and Time: 08/26/2022 1254 Previous diagnosis: Moderate, Obstructive Sleep Apnea-Hypopnea Syndrome AHI: 17.9 Reason for follow up: first compliance (MASK FITTIN) Equipment type: CPAP (RESMED Airsense 11, s/u 06/2022 NO DATA) Equipment obtained from: [employer] (got initial supplies) Mask style: Nasal Mask brand: Respironics (Dreamwear) Backup mask available: No Prior sleep studies: No HPI additional information: MOON MCNEAL was diagnosed to have moderate, AHI 17.9, obstructive sleep apnea-hypopnea syndrome and returned today for CPAP therapy 2 month follow-up. Sleep Study - Results Prior sleep studies: No CPAP Compliance Data - Data Reviewed with Patient Compliance rate %: 0 (not using) Current pressure setting (cmH2O): 4-15 Compliance data discussion: She was unable to get a mask fitting by her DME for a full face mask as requested. She has a Dreamwear nasal cushion mask. Subjective Missed days of use due to: reports: mask issues (feels suffocating in mask) Patient concerns: reports: other (feels suffocating) Current pressure setting perceived as: too high Initial [place] Sleepiness Scale score: 16 (03/09/2022) Current [place] Sleepiness Scale score: 16 (08/26/22) Allergies and Home Medications Known drug allergies: No Drug allergies reviewed: Yes Home medication list reviewed: Yes (no changes) Allergy and home medication list: Allergies No Known Drug Allergies Allergy (Verified 08/25/22 14:06) Review of Systems Review of systems same as previous: Yes (no changes) Physical Exam Vital signs obtained and entered by: FARIHA Hanson MA Blood Pressure: 124/74 (LEFT ARM) Cuff size: regular Heart Rate: 104 O2 Saturation: 98 Height: 5 ft 11 in Weight: 223 lb 6.4 oz Body Mass Index: 31.1 BMI Classification: Obese Impression and Plan 1. Obstructive Sleep Apnea-Hypopnea Syndrome, moderate, with poor treatment compliance and unknown apnea control. Patient comes in for help with her mask. She started with a nasal cushion Dreamwear mask but states she put it on 2 times and the air was so high it felt "suffocating". She had a mask fitting set up for a full face mask but this was canceled by her DME because they no longer have a telemarketing sales representative in the area. I had Gigi, lead angiography technologist, come in and fit her with a full face Dreamwear mask. She states she likes the feel and will start using this tonight. I will have her follow up with us in a month to check compliance. Patient's apnea severity and rationale for treatment to reduce apnea, improve sleep quality and reduce cardiovascular and cerebrovascular events was reviewed. I also reviewed the benefit of consistent device use of CPAP for hypertension, diabetes, gastric reflux, depression and mood disorder. 2. Obesity, unspecified. Currently patients BMI is 31.1. Obesity increases the risk of apnea, CPAP pressure requirements and overall health risks especially cardiovascular and diabetes. Thus patient is advised to lose weight. The patient's CPAP pressure range should accommodate some weight loss. * Continue auto CPAP pressure at 4-15 cmH2O * Sample of full face mask, Dreamwear kit given to patient * Notify me if snoring with mask or feeling that the pressure is too much or too little * Attempt to lose weight * Call this office if any problems using CPAP * Return for follow up in 1-2 months, or sooner if concerns arise Mask provided: Yes Counseling Topics: Weight loss health impact Visit Type: In Office Time Spent with Patient (minutes): 20 Provider Statement: I spent 100% of the Face to Face Visit with the patient with greater than 50% spent counseling the patient and coordination of care.
[2022-08-26 13:31] VITALS: BP 124/74
== END 2022-08-26 12:55 | disposition home or self-care (01) ==
LOC: SC 12:54
PROVIDERS: ATTEND Nurse Practitioner Family
DX: G47.33 Obstructive sleep apnea (adult) (pediatric) (principal); E66.9 Obesity, unspecified; Z68.31 Body mass index [BMI] 31.0-31.9, adult
CPT/HCPCS: 99212; 99213

== ENCOUNTER 2022-12-30 15:50 | Outpatient (CLI) | payer MEDICAID ==
--- NOTE | 2022-12-30 16:30 | SLEEP CARE CONSULTATION ---
Information from patient questionnaire entered by Fariha No. I have reviewed and concur with the information entered by Fariha No. This document represents the service I personally performed and the decisions made by , Lizz Cameron ARNP. History of Present Illness Service Date and Time: 12/30/2022 1550 Previous diagnosis: Moderate, Obstructive Sleep Apnea-Hypopnea Syndrome AHI: 17.9 Reason for follow up: other (4 MONTH F/U) Equipment type: CPAP (RESMED 11, s/u 06/2022) Equipment obtained from: [employer] ([employer]) (got initial supplies, no other supplies) Mask style: Full face Mask brand: Respironics (Dreamwear) Backup mask available: Yes (nasal mask) Prior sleep studies: No HPI additional information: MOON MCNEAL was diagnosed to have moderate, AHI 17.9, obstructive sleep apnea-hypopnea syndrome and returned today for CPAP therapy four month follow- up. Sleep Study - Results Prior sleep studies: No CPAP Compliance Data - Data Reviewed with Patient Average duration of nightly device use: 1 hour 11 minutes Compliance rate %: 0 (10/121 days used) Current pressure setting (cmH2O): 4-15 (median 4.5, avg 5.9, max 6.3) Average residual AHI: 0.4 Central apnea: 0.3 Obstructive apnea: 0 Average large leak: 0 L/min Subjective Patient concerns: reports: mask discomfort (just from movement), dry mouth, nose, throat (with and without CPAP). denies: aerophagia, air blowing in eyes, mask leak noise, nasal congestion, epistaxis Observed to snore while using device: No Current pressure setting perceived as: too high On therapy, patient: reports: sleeping better, more rested overall. denies: drowsiness while driving Initial [place] Sleepiness Scale score: 16 (03/09/2022) Current [place] Sleepiness Scale score: 16 (12/30/22) Allergies and Home Medications Known drug allergies: No Drug allergies reviewed: Yes Home medication list reviewed: Yes (no changes) Allergy and home medication list: Allergies No Known Drug Allergies Allergy (Verified 12/29/22 11:53) Review of Systems Review of systems same as previous: Yes (no changes) Physical Exam Vital signs obtained and entered by: FARIHA Hanson MA Blood Pressure: 136/78 (LEFT ARM) Cuff size: regular Heart Rate: 101 O2 Saturation: 101 Height: 5 ft 11 in Weight: 212 lb 12.8 oz Body Mass Index: 29.7 BMI Classification: Overweight Impression and Plan 1. Obstructive Sleep Apnea-Hypopnea Syndrome, moderate, with poor treatment compliance and good apnea control. On CPAP therapy, the patient has better sleep quality and is more rested overall. Patient states she has difficulty with sleeping on her side with a fullface mask because it will dislodge it. Because she was having this problem she has not been using her CPAP. She feels to pressure is too high. I will adjust her CPAP pressure to 4-6 cmH2O to try and help her acclimatize to the lower pressures. She is also advised to try a CPAP pillow to reduce dislodging of her mask when sleeping on her side. She may also retry the nasal cushion mask when sleeping on her side. She voiced understanding. She states her [employer] company called her yesterday and asked her when they could picker / packer the machine. She was not sure what they were talking about. I explained to her that because she is noncompliant with her CPAP use, they may be requesting for her to return her machine. I will send them a copy of this visit and she is to let us know if they still are requiring her to return her machine or if they agree to give her some more time to bring up her compliance. Patient's apnea severity and rationale for treatment to reduce apnea, improve sleep quality and reduce cardiovascular and cerebrovascular events was reviewed. I also reviewed the benefit of consistent device use of CPAP for hypertension, diabetes, gastric reflux, depression and mood disorder. 2. Overweight, unspecified. Currently patients BMI is 29.7. Obesity increases the risk of apnea, CPAP pressure requirements and overall health risks especially cardiovascular and diabetes. Thus patient is advised to lose weight. * Change auto CPAP pressure to 4-6 cmH2O * Notify me if snoring with mask or feeling that the pressure is too much or too little * Attempt to lose weight * Call this office if any problems using CPAP * Return for follow up in 1-2 months, or sooner if concerns arise Counseling Topics: Weight loss health impact Visit Type: In Office Time Spent with Patient (minutes): 20 Provider Statement: I spent 100% of the Face to Face Visit with the patient with greater than 50% spent counseling the patient and coordination of care.
[2022-12-30 16:36] VITALS: BP 136/78; O2SAT 101
== END 2022-12-30 15:51 | disposition home or self-care (01) ==
LOC: SC 15:50
PROVIDERS: ATTEND Nurse Practitioner Family
DX: G47.33 Obstructive sleep apnea (adult) (pediatric) (principal); E66.3 Overweight; Z68.29 Body mass index [BMI] 29.0-29.9, adult
CPT/HCPCS: 99212; 99213